=== PATIENT | male | born 2000 | race Caucasian/White ===

== ENCOUNTER 2024-09-29 12:43 | Emergency (ER) | payer BC, SELFPAY ==
[2024-09-29 12:52] VITALS: BP 107/56; PULSE 66; RESP 20; TEMP 36.9; O2SAT 100
--- NOTE | 2024-09-29 14:04 | ED_ITS ---
HPI - Eye Problem General Chief complaint: Eye Problems Stated complaint: FB in left eye Time Seen by Provider: 09/29/24 14:13 Source: patient, RN notes reviewed and old records reviewed Mode of arrival: ambulatory Limitations: no limitations History of Present Illness HPI Narrative: 24-year-old male to [facility] with complaint of Left eye irritation. 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 Patient reports flushing eye extensively prior to arrival. Patient reports he no longer has feeling of foreign body, just irritation and is concerned for infection. Patient denies visual changes, pain, allergies, pertinent medical history. Patient resting comfortably in exam room in no acute distress. Related Data Allergies Allergy/AdvReac Type Severity Reaction Status Date / Time No Known Allergies Allergy Verified 09/29/24 13:15 Review of Systems Review of Systems: All systems reviewed & are unremarkable except as noted in HPI and below Constitutional: Constitutional: Reports no additional constitutional complaints Eyes: Eyes: Reports as per HPI, Denies blurry vision, Reports irritation ( Left), Denies loss of vision, Denies other visual disturbances and Denies eye pain ENT: Reports system reviewed and no additional complaints, except as documented Cardiovascular: Cardiovascular: Reports no additional cardiovascular complaints, Denies chest pain and Denies dyspnea Respiratory: Respiratory: Reports no additional respiratory complaints, Denies cough and Denies dyspnea Musculoskeletal: Musculoskeletal: Reports no additional musculoskeletal complaints Neurologic: Reports system reviewed and no additional complaints, except as documented Psychiatric: Psychiatric: Reports no additional psychiatric complaints PMFSH Comments At the time of my signature, I reviewed and agree with the nursing past medical, surgical, social, and family history. There is no relevant family history pertinent to the patient complaint. Exam Const: General: cooperative, healthy appearing, comfortable, no acute distre ss, alert and well nourished Nutritional Appearance: well nourished Orientation/consciousness: patient oriented x3 Limitations: no limitations HENMT: Head: normal to inspection Ears: external ears normal Face/Nose/Sinus: Normal external nose present, Normal nares present, normal facial exam, No erythema and No edema Face and sinus: normal facial exam, no erythema and no edema Mouth: Yes Normal oral and palatal mucosa present Eyes: Visual Fernández: normal visual fernández by confrontation Alignment and Position: alignment normal and position normal Periorbital: periorbital findings normal Eyelids: eyelids normal Conjunctivae: conjunctivae normal Sclera: sclerae normal Cornea: corneas normal and fluorescein used Pupils: Equal, round and reactive pupils present, Pupils normal by confrontation and Pupil accommodation reflex normal Neck: Neck: normal visual inspection, full ROM and no meningeal signs Chest: Chest palpation & inspection: normal inspection of the chest Resp: Effort & Inspection: normal respiratory effort and able to speak in complete sentences Cardio: Jugular venous distension: no JVD Rate: regular rate Rhythm: regular rhythm Back/Spine/Pelvis: Cervical Spine: cervical ROM normal Skin: General skin exam: normal color, no rashes or lesions noted and turgor normal Neuro: General: patient oriented x3, gait normal, moves all extremities and no meningeal signs Speech: normal speech Gait exam (Neuro): Normal gait present Extrem: General: normal to inspection, full ROM and capillary refill normal Psych: Appearance: grossly normal and well kempt Course Course Emergency Course: Some parts of this dictation were generated by voice recognition software and may contain typographical and/or grammatical inaccuracies. Level of Care: Express Care Visit Vital Signs Vital signs: Vital Signs Temperature 36.9 C 09/29/24 12:52 Pulse Rate 66 09/29/24 12:52 Respiratory Rate 20 09/29/24 12:52 Blood Pressure 107/56 L 09/29/24 12:52 Pulse Oximetry 100 09/29/24 12:52 Oxygen Delivery Room Air 09/29/24 12:52 Temperature 36.9 C 09/29/24 12:52 Pulse Rate 66 09/29/24 12:52 Respiratory Rate 20 09/29/24 12:52 Blood Pressure 107/56 L 09/29/24 12:52 Pulse Oximetry 100 09/29/24 12:52 Oxygen Delivery Room Air 09/29/24 12:52 reviewed MDM - Eye Problem MDM Narrative Medical decision making narrative: 24-year-old male to [facility] Care with complaint of Left eye irritation. 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 Patient reports flushing eye extensively prior to arrival. Patient reports he no longer has feeling of foreign body, just irritation and is concerned for infection. Patient denies visual changes, pain, allergies, pertinent medical history. Patient resting comfortably in exam room in no acute distress. eye exam completed with fluorescein stain. Exam grossly unremarkable. Patient is sitting comfortably in exam room nontoxic in appearance. Patient appropriate for outpatient treatment and follow-up. Discharge instructions reviewed with patient, as well as provided in writing per nursing staff. The instructions also include specific and strict return/GO TO THE ER as well as f/u information. All questions have been answered, and the patient deny any further questions w ith discharge and discharge plan. Some parts of this dictation were generated by voice recognition software and may contain typographical and/or grammatical inaccuracies. Differential Diagnosis Differential diagnosis: Likely corneal abrasion, conjunctivitis, acute iritis, hyphema, periorbital cellulitis, subconjunctival hemorrhage, glaucoma, corneal ulcer and ruptured globe Discharge Plan Discharge Clinical Impression: Irritation of left eye Patient Disposition: Home, Self-Care Condition: Stable Additional Instructions: please use prescription eyedrops as directed. For new or worsening symptoms go directly to the emergency department Patient Language: [place]an Prescriptions: New ofloxacin 0.3 % drops See Rx Instructions EACH EYE .COMPLEX Qty: 10 0RF Rx Instructions: put 1-2 drps into affected eye(s) every 2-4 h x 2 days, then 1-2 drps 4 times/day days 3-7 Follow-up/Referrals: PHYSICIAN NOT ON STAFF,NONSTAFF [Primary Care Provider] -
--- NOTE | 2024-09-29 14:09 | PC.NURSE ---
[employer] SUPERVISOR MELTING at bedside performing eye exam. Henderson lamp, fluorisine strip, and tetricaine drops at bedside for SHIFT SUPER[employer]OR MELTING use.
== END 2024-09-29 14:26 | disposition home or self-care (01) ==
PROVIDERS: Emergency Provider Nurse Practitioner Family
DX: H57.12 Ocular pain, left eye (principal)
CPT/HCPCS: 99203; G0463